=== PATIENT | female | born 1990 | race Caucasian/White ===

== ENCOUNTER 2021-04-05 15:59 | Emergency (ER) | payer OTHER ==
[~2021-04-05] VITALS: Ht 165.1 cm; Wt 86.2 kg
[2021-04-05 16:09] VITALS: BP 132/75
--- NOTE | 2021-04-05 16:12 | NUR ---
PATIENT HERE FOR C/O NAUSEA /VOMITING SINCE 0. PATIENT IS ALERT AND ORIENTED X4. O SOB OR RESPIRATORY DISTRESS NOTED. RESPIRATIONS EVEN AND UNLABORED. WILL CONTINUE TO MONITOR. AWAITING MD ONEILL
[2021-04-05] MEDS ORDERED: ONDANSETRON HCL/PF 4 MG/2 ML VIAL ONE (16:25)
[2021-04-05] MEDS ORDERED: FAMOTIDINE/PF INJ 20 MG/2 ML VIAL IV ONE (16:26)
[2021-04-05] MEDS: IV NS 0.9% 1,000 ML BAG IV ONE (16:55)
[2021-04-05] MEDS: ONDANSETRON HCL/PF 4 MG/2 ML VIAL IVP ONE (16:56)
[2021-04-05] MEDS: FAMOTIDINE/PF INJ 20 MG/2 ML VIAL IV ONE (16:56)
[2021-04-05] MEDS ORDERED: diphenhydrAMINE HCL 50 MG/ML VIAL ONE ×2 (17:08→17:50)
[2021-04-05] MEDS ORDERED: METOCLOPRAMIDE HCL 10 MG/2 ML VIAL ONE (17:08)
[2021-04-05] MEDS ORDERED: LORAZEPAM INJ 2 MG/ML VIAL ONE (17:09)
[2021-04-05] MEDS: METOCLOPRAMIDE HCL 10 MG/2 ML VIAL IV ONE (17:23)
[2021-04-05] MEDS: diphenhydrAMINE HCL 50 MG/ML VIAL IV ONE ×2 (17:23→17:53)
[2021-04-05] MEDS: LORAZEPAM INJ 2 MG/ML VIAL IV ONE (17:23)
[2021-04-05] MEDS ORDERED: ONDA4TAB5 PO (18:49)
--- NOTE | 2021-04-05 19:00 | NUR ---
Patient discharged to home in stable condition. Written and verbal after care instructions given. Patient verbalizes understanding of instruction.
== END 2021-04-05 19:01 | disposition home or self-care (01) ==
LOC: ER 16:02
DX: R11.2 Nausea with vomiting, unspecified (principal); G43.909 Migraine, unspecified, not intractable, without status migrainosus; Z88.1 Allergy status to other antibiotic agents; Z88.6 Allergy status to analgesic agent; Z60.2 Problems related to living alone
CPT/HCPCS: 96361; 96374; 96375; 99284; J1200 ×2; J2060; J2405; J2765; J3490; J7030